=== PATIENT | female | born 1955 | race Caucasian/White ===

== ENCOUNTER 2020-05-10 10:59 | Emergency (ER) | payer MEDICARE ==
[~2020-05-10] VITALS: Ht 170.2 cm; Wt 90.9 kg
[2020-05-10] MEDS ORDERED: HYDR-1475 PO (11:05)
[2020-05-10] MEDS ORDERED: PHENY100 PO ×2 (11:05)
[2020-05-10] MEDS ORDERED: LISI-661 PO (11:05)
[2020-05-10 11:58] VITALS: BP 146/96
== END 2020-05-10 12:34 | disposition home or self-care (01) ==
LOC: EMS 11:01
DX: I10 Essential (primary) hypertension (principal); R01.1 Cardiac murmur, unspecified; Z88.6 Allergy status to analgesic agent; Z88.5 Allergy status to narcotic agent; Z79.899 Other long term (current) drug therapy
CPT/HCPCS: Z7502

== ENCOUNTER 2025-04-22 18:35 | Emergency (ER) | payer MEDICARE ==
[~2025-04-22] VITALS: Ht 157.5 cm; Wt 76.8 kg
[~2025-04-22 18:35] MED LIST: HYDR25TA2 PO; LISI-893 PO; PHEN100C74 PO
[2025-04-22 20:20] LABS: PLATELET COUNT (AUTO) 166 K/uL (150-450); RED BLOOD CELL COUNT(AUTO) 4.06 MIL/uL (4.00-5.20); RED CELL DISTRIBUTION WIDTH 13.2 % (11.5-14.5); WHITE BLOOD COUNT (AUTO) 7.4 K/uL (4.5-11.0)
[2025-04-22 20:23] LABS: CALCIUM, TOTAL 9.4 mg/dL (8.8-10.5); CREATININE 1.03 mg/dL (0.60-1.30); GLOMERULAR FILTR. RATE CALC 53 mL/min (>60); GLUCOSE,RANDOM 120 mg/dL (70-110); SODIUM SERUM 136 mmol/L (136-145); UREA NITROGEN, BLOOD 18 mg/dL (7-18)
[2025-04-22 20:34] LABS: TROPONIN I-HIGH SENSITIVITY 9 ng/L (<51)
[2025-04-22 22:21] LABS: TROPONIN I-HIGH SENSITIVITY 9 ng/L (<51)
[2025-04-22 23:56] VITALS: BP 119/63; PULSE 65; RESP 18; TEMP 98.3; O2SAT 97
== END 2025-04-22 23:57 | disposition home or self-care (01) ==
LOC: EMS 18:35
DX: F41.9 Anxiety disorder, unspecified (principal); I10 Essential (primary) hypertension; Z98.890 Other specified postprocedural states; Z79.899 Other long term (current) drug therapy; Z88.6 Allergy status to analgesic agent
CPT/HCPCS: 80048; 84484; 85025; 93005; 99284

== ENCOUNTER 2025-05-09 15:15 | Emergency (ER) | payer MEDICARE ==
[~2025-05-09] VITALS: Ht 157.5 cm; Wt 76.8 kg
[2025-05-09 15:17] VITALS: TEMP 98.6
[2025-05-09 16:27] LABS: PLATELET COUNT (AUTO) 182 K/uL (150-450); RED BLOOD CELL COUNT(AUTO) 4.37 MIL/uL (4.00-5.20); RED CELL DISTRIBUTION WIDTH 13.1 % (11.5-14.5); WHITE BLOOD COUNT (AUTO) 8.1 K/uL (4.5-11.0)
[2025-05-09 16:33] LABS: CALCIUM, TOTAL 9.7 mg/dL (8.8-10.5); CREATININE 1.08 mg/dL (0.60-1.30); GLOMERULAR FILTR. RATE CALC 50 mL/min (>60); GLUCOSE,RANDOM 103 mg/dL (70-110); SODIUM SERUM 137 mmol/L (136-145); UREA NITROGEN, BLOOD 24 mg/dL (7-18)
[2025-05-09 16:43] LABS: TROPONIN I-HIGH SENSITIVITY 21 ng/L (<51)
[2025-05-09] MEDS: POTASSIUM CHLORIDE 20 MEQ ER TABLET PO ONE (17:02)
[2025-05-09 18:08] VITALS: BP 128/52; PULSE 52; RESP 18; O2SAT 96
== END 2025-05-09 18:16 | disposition home or self-care (01) ==
LOC: EMS 15:16
DX: R42 Dizziness and giddiness (principal); J32.9 Chronic sinusitis, unspecified; E87.6 Hypokalemia; J06.9 Acute upper respiratory infection, unspecified; I10 Essential (primary) hypertension; Z97.0 Presence of artificial eye; Z88.6 Allergy status to analgesic agent; Z79.899 Other long term (current) drug therapy
CPT/HCPCS: 70450; 70486; 71045; 80048; 80185; 83880; 84484; 85025; 93005; 99285; 36415-L1; 36415-TC